=== PATIENT | female | born 1965 | race Two or more races ===

== ENCOUNTER → 2023-07-09 06:38 | Outpatient (REF) | payer OTHER, SELFPAY | LOC: HWWDC 06:38 | PROVIDERS: ATTENDING PHYSICIAN Nurse Practitioner Primary Care | DX: Z12.31 Encounter for screening mammogram for malignant neoplasm of breast (principal) | CPT/HCPCS: 77063; 77067 ==

== ENCOUNTER → 2023-07-30 11:02 | Outpatient (REF) | payer OTHER, SELFPAY | LOC: HWRAD 11:02 | PROVIDERS: ATTENDING PHYSICIAN Family Medicine | DX: M81.0 Age-related osteoporosis without current pathological fracture (principal) | CPT/HCPCS: 77080 ==